=== PATIENT | female | born 1980 | race African-American/Black ===

== ENCOUNTER 2016-10-29 10:41 | Emergency (ER) | payer SELFPAY ==
[~2016-10-29] VITALS: Ht 165.1 cm; Wt 88.1 kg
[~2016-10-29 10:41] MED LIST: FEOSOL325 MG PO; MOTRIN800 MG PO; PRENATAL1 EACH PO
[2016-10-29 11:31] VITALS: BP 114/76
== END 2016-10-29 11:32 | disposition home or self-care (01) ==
LOC: EME 10:41
DX: L76.34 Postprocedural seroma of skin and subcutaneous tissue following other procedure (principal); R19.7 Diarrhea, unspecified; Y83.4 Other reconstructive surgery as the cause of abnormal reaction of the patient, or of later complication, without mention of misadventure at the time of the procedure
CPT/HCPCS: 99281; 99283

== ENCOUNTER 2017-11-17 10:17 | Day surgery (SDC) | payer OTHER ==
[~2017-11-17] VITALS: Ht 167.6 cm; Wt 84.0 kg
[~2017-11-17 10:17] MED LIST changes: +ADIPEX-P37.5 MG PO
[2017-11-17] MEDS ORDERED: TYLENOL EXTRA500 MG PO (11:00)
[2017-11-17] MEDS ORDERED: TRANSDERM-SCOP1 EACH TD (11:00)
[2017-11-17] MEDS ORDERED: XANAX0.5 MG PO (11:00)
[2017-11-17 11:02] VITALS: BP 103/58
[2017-11-17 18:26] VITALS: BP 121/74
[2017-11-17 19:27] VITALS: BP 135/76
[2017-11-18 00:05] VITALS: BP 133/66
[2017-11-18 03:16] VITALS: BP 119/56
[2017-11-18 08:20] VITALS: BP 109/63
== END 2017-11-18 09:50 | disposition home or self-care (01) ==
LOC: SDC 10:17 → 2SOUTH 16:30 → 2EAST 16:30 → ENRESERV 17:16 → 2EAST 18:12
PROC: 0H0V0ZZ Alteration of Bilateral Breast, Open Approach (ICD-10-PCS; principal; 2017-11-17)
DX: N62 Hypertrophy of breast (principal); Z79.899 Other long term (current) drug therapy
CPT/HCPCS: 88305; G0378; J0690; J1100; J1170; J2250; J2270; J2405; J2710; J3010; J7040; J7643; S0020